=== PATIENT | male | born 1965 | race African-American/Black ===

== ENCOUNTER 2021-09-20 12:12 | Emergency (ER) | payer BC ==
--- NOTE | 2021-09-20 14:39 | RAD REPORT ---
EXAM DESCRIPTION: CT - Head Brain Wo Cont - 09/20/2021 2:30 pm CLINICAL HISTORY: paresthesias Headache, drowsiness COMPARISON: No comparisons TECHNIQUE: All CT scans are performed using dose optimization technique as appropriate and may inclu de automated exposure control or mA/KV adjustment according to patient size. FINDINGS: 11 mm area of diminished density is seen in the anterior right basal ganglia which could b e a subacute infarction.No acute hemorrhage, hydrocephalus or midline shift. No evidence of extra-axi al fluid collection. Prominent mucous retention cyst versus polyp right maxillary antrum. The paranasal sinuses and mastoi ds are otherwise clear. The calvarium is intact. IMPRESSION: 11 mm area of diminished density anterior right basal ganglia could be a subacute infarc t.
--- NOTE | 2021-09-20 14:41 | RAD REPORT ---
EXAM DESCRIPTION: RAD - Chest Single View - 09/20/2021 2:36 pm CLINICAL HISTORY: CHEST PAIN Chest pain. COMPARISON: No comparisons FINDINGS: Portable technique limits examination quality. The lungs are grossly clear. The heart is normal in size. No displaced fractures. IMPRESSION: No acute intrathoracic process suspected.
--- NOTE | 2021-09-20 15:16 | RAD REPORT ---
EXAM DESCRIPTION: MRI - Brain Wo Cont - 09/20/2021 3:06 pm CLINICAL HISTORY: left arm paresthesias COMPARISON: Head Brain Wo Cont dated 09/20/2021 TECHNIQUE: Multi-sequence, multiplanar MR imaging of the brain was performed without contrast. FINDINGS: No intracranial hemorrhage, hydrocephalus or extra-axial fluid collections. No edema or sh ift of midline structures. No findings to suspect brain mass.11-12 mm area of gliosis in the anterior right basal ganglia most compatible remote infarct. DWI is negative for acute CVA. Midline structures are normally formed. Prominent mucous retention cyst versus polyp right maxillary antrum. IMPRESSION: No acute CVA or other acute intracranial process. 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
--- NOTE | 2021-09-20 15:50 | RAD REPORT ---
EXAM DESCRIPTION: US - UPPER EXTREMITY VENOUS UNILATE - 09/20/2021 3:27 pm CLINICAL HISTORY: NUMBNESS/TINGLING Arm swelling COMPARISON: No comparisons FINDINGS: Left upper extremity venous system was interrogated with Doppler technique. Normal flow, c ompressibility and augmentation was noted. There is no DVT present. IMPRESSION: No evidence of left upper extremity deep venous thrombosis.
[2021-09-20 16:12] LABS: Absolute Lymphocytes (CBC) 2.3 K/uL (0.7-4.9); Basophils % 0.6 % (0-1.3); Hematocrit 41.3 % (39.6-49.0); Lymphocytes % 29.1 % (15.3-44.8); MPV 7.4 fL (7.6-11.3); Protime INR 1.03; RBC Red Blood Cell Count 4.79 M/uL (4.33-5.43)
[2021-09-20 16:41] LABS: ALT/SGPT 28 U/L (12-78); AST/SGOT 8 U/L (15-37); Albumin 3.7 g/dL (3.4-5.0); Alkaline Phosphatase 69 U/L (45-117); BUN Blood Urea Nitrogen 11 mg/dL (7-18); Bicarbonate 28 mmol/L (21-32); Bilirubin Direct < 0.1 mg/dL (0-0.2); Bilirubin Total 0.4 mg/dL (0.2-1.0); Glucose Level 113 mg/dL (74-106); Magnesium 2.5 mg/dL (1.8-2.4); NT PRO-BNP 42 pg/mL (<125); Potassium 3.4 mmol/L (3.5-5.1); Protein, Total 7.5 g/dL (6.4-8.2); Sodium Level 144 mmol/L (136-145); Troponin (Emerg Dept Use Only) < 0.02 ng/mL (0.0-0.045)
--- NOTE | 2021-09-20 17:24 | ER ---
Nurse's Notes [facility] Name: Luis Phillips Age: 56 yrs Sex: Male : 1965 Arrival Date: 09/20/2021 Time: 12:15 Bed 15 Private MD: Diagnosis: Peripheral Neuropathy Presentation: 09/20 12:38 Chief complaint: Patient states: back of l arm and 4th,5th digits have been numb x 5 jh6 days. no injury but increased pain when laying down at night. Coronavirus screen: Vaccine status: Patient reports receiving the 2nd dose of the covid vaccine. Ebola Screen: No symptoms or risks identified at this time. Initial Sepsis Screen: Does the patient meet any 2 criteria? No. Patient's initial sepsis screen is negative. Does the patient have a suspected source of infection? No. Patient's initial sepsis screen is negative. Risk Assessment: Do you want to hurt yourself or someone else? Patient reports no desire to harm self or others. Onset of symptoms was September 16, 2021. 12:38 Method Of Arrival: Ambulatory [facility] 12:38 Acuity: TYSON 3 6 Triage Assessment: 12:43 General: Appears in no apparent distress. Behavior is calm, cooperative. Pain: 6 Complains of pain in left arm Pain radiates to palmar aspect of distal phalanx of left little finger, palmar aspect of middle phalanx of left little finger, palmar aspect of proximal phalanx of left little finger, palmar aspect of distal phalanx of left ring finger, palmar aspect of middle phalanx of left ring finger and palmar aspect of proximal phalanx of left ring finger Quality of pain is described as. Historical: - Allergies: 12:42 Lovastatin; jh6 - PMHx: 12:42 Diabetes mellitus; Hypertensive disorder; Glaucoma; 6 - Social history:: Smoking status: Patient reports the use of cigarette tobacco products. Screenin:25 Abuse screen: Denies threats or abuse. Nutritional screening: No deficits noted. ap3 Tuberculosis screening: No symptoms or risk factors identified. Fall Risk None identified. Assessment: 14:23 General: Appears comfortable, Behavior is calm, cooperative, appropriate for age. Pain: ap3 Complains of pain in left arm. Neuro: Level of Consciousness is awake, alert, obeys commands, Oriented to person, place, time, situation, Appropriate for age Lead Sprinkler are equal bilaterally Moves all extremities. Gait is steady, Speech is normal, Facial symmetry appears normal. Neuro: Reports numbness in left arm weakness in left arm. Cardiovascular: Capillary refill < 3 seconds Patient's skin is warm and dry. Respiratory: Airway is patent Respiratory effort is even, unlabored, Respiratory pattern is regular, symmetrical. Musculoskeletal: Reports weakness in left arm numbness in left arm. 16:17 Reassessment: Patient and/or family updated on plan of care and expected duration. Pain ap3 level reassessed. Patient is alert, oriented x 3, equal unlabored respirations, skin warm/dry/pink. 17:05 Reassessment: Patient and/or family updated on plan of care and expected duration. Pain ap3 level reassessed. Patient is alert, oriented x 3, equal unlabored respirations, skin warm/dry/pink. remains at bedside\E\. Vital Signs: 12:38 BP 176 / 115; Pulse 72; Resp 17; Temp 98.6(O); Pulse Ox 100% ; Weight 124.28 kg; Height 6 6 ft. 0 in. (182.88 cm); Pain 2/10; 13:51 BP 163 / 114; Pulse 61; Resp 17; Pulse Ox 99% on R/A; mh5 17:28 BP 170 / 114; Pulse 76; Pulse Ox 98% on R/A; ap3 12:38 Body Mass Index 37.16 (124.28 kg, 182.88 cm) [facility] ED Course: 12:15 Patient arrived in ED. ds1 12:42 Triage completed. 6 12:43 Arm band placed on left wrist. [facility] 13:26 José Miguel Duque PA is PHCP. [facility] 13:26 Constantine Yeh MD is Attending Physician. [facility] 13:31 Keara Peña, MARISSA is Primary Nurse. ap3 13:50 Patient has correct armband on for positive identification. Placed in gown. Bed in low mh5 position. Call light in reach. Adult w/ patient. pet groomer on. Pulse ox on. NIBP on. 14:29 CT Head Brain wo Cont In Process Unspecified. EDMS 14:35 XRAY Chest (1 view) In Process Unspecified. EDMS 15:06 Brain Wo Cont MRI In Process Unspecified. EDMS 15:26 UPPER EXTREMITY VENOUS UNILATE In Process Unspecified. EDMS 15:53 Inserted saline lock: 20 gauge in right antecubital area, using aseptic technique. ap3 Blood collected. 17:23 Angelo Casillas MD is Referral Physician. [facility] 17:29 Nurse Practitioner and/or Physician Box Office Attendant to see patient. ap3 17:29 No provider procedures requiring assistance completed. ap3 17:39 IV discontinued, intact, bleeding controlled, No redness/swelling at site. Pressure ap3 dressing applied. Administered Medications: No medications were administered Outcome: 17:23 Discharge ordered by . jm 17:39 Discharged to home ambulatory, with family. ap3 17:39 Condition: good 17:39 Discharge instructions given to patient, family, Instructed on discharge instructions, follow up and referral plans. Demonstrated understanding of instructions, follow-up care. 17:44 Patient left the ED. ap3 Signatures: Dispatcher [employer] EDMS José Miguel Duque PA PA Kathia Andujar ds1 Raven Garces [facility] Keara Peña RN RN ap3 Keli Connors RN RN jh6
--- NOTE | 2021-09-20 17:24 | EDPHYS ---
Physician Documentation [facility] Name: Luis Phillips Age: 56 yrs Sex: Male : 1965 Arrival Date: 09/20/2021 Time: 12:15 Bed 15 Private MD: ED Physician Constantine Yeh HPI: 09/20 14:19 This 56 yrs old Black Male presents to ER via Ambulatory with complaints of L Arm jmm Numbness. 14:19 The patient or guardian complains of Numbness. Onset: The symptoms/episode jmm began/occurred gradually, 4 day(s) ago. Is a 56-year-old male with history of diabetes mellitus, hypertension the presents emerged department with complaints of numbness beginning around the left axillary region and spreading to the left forearm. Symptoms began this past Sunday. Patient denies any trauma or recent strenuous activity. Patient denies chest pain or shortness of breath. Denies unilateral weakness. Numbness mainly is in the left forearm denies any numbness to the hand or fingers. Historical: - Allergies: 12:42 Lovastatin; jh6 - PMHx: 12:42 Diabetes mellitus; Hypertensive disorder; Glaucoma; [facility] - Social history:: Smoking status: Patient reports the use of cigarette tobacco products. ROS: 14:19 Constitutional: Negative for fever, chills, and weight loss, Cardiovascular: Negative jmm for chest pain, palpitations, and edema, Respiratory: Negative for shortness of breath, cough, wheezing, and pleuritic chest pain. 14:19 Neuro: Positive for numbness. 14:19 All other systems are negative. Exam: 14:19 Constitutional: This is a well developed, well nourished patient who is awake, alert, jmm and in no acute distress. Head/Face: atraumatic. Eyes: EOMI, no conjunctival erythema appreciated ENT: Moist Mucus Membranes Neck: Trachea midline, Supple Chest/axilla: Normal chest wall appearance and motion. Cardiovascular: Regular rate and rhythm. No edema appreciated Respiratory: Normal respirations, no respiratory distress appreciated Abdomen/GI: Non distended, soft Back: Normal ROM Skin: General appearance color normal MS/ Extremity: Moves all extremities, no obvious deformities appreciated, no edema noted to the lower extremities Neuro: Awake and alert, normal gait Psych: Behavior is normal, Mood is normal, Patient is cooperative and pleasant 14:19 Musculoskeletal/extremity: Full range of motion appreciated to the left arm, left elbow, left wrist. Full radial pulse appreciated, compartments are soft. Gross sensation is intact. 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 14:19 Skin: Appearance: Color: normal in color. 14:19 Neuro: Orientation: is normal, Mentation: is normal, Memory: is normal. 14:19 Psych: Behavior/mood is pleasant, cooperative. Vital Signs: 12:38 BP 176 / 115; Pulse 72; Resp 17; Temp 98.6(O); Pulse Ox 100% ; Weight 124.28 kg; Height jh6 6 ft. 0 in. (182.88 cm); Pain 2/10; 13:51 BP 163 / 114; Pulse 61; Resp 17; Pulse Ox 99% on R/A; mh5 17:28 BP 170 / 114; Pulse 76; Pulse Ox 98% on R/A; ap3 12:38 Body Mass Index 37.16 (124.28 kg, 182.88 cm) jh6 MDM: 14:19 Patient medically screened. [facility] 17:22 Data reviewed: vital signs, nurses notes. Counseling: I had a detailed discussion with amparo the patient and/or guardian regarding: the historical points, exam findings, and any diagnostic results supporting the discharge/admit diagnosis, lab results, radiology results, the need for outpatient follow up, to return to the emergency department if symptoms worsen or persist or if there are any questions or concerns that arise at home. ED course: Labs and imaging studies are unremarkable. Patient advised to follow-up with neurology for further evaluation. Most likely a peripheral neuropathy. Patient given signs and symptoms of CVA and otherwise given strict return precautions. Patient understood agrees plan of care.. 09/20 14:20 Order name: Basic Metabolic Panel [facility] 09/20 14:20 Order name: CBC with Diff [facility] 09/20 14:20 Order name: LFT's; Complete Time: 16:42 [facility] 09/20 14:20 Order name: Magnesium; Complete Time: 16:42 [facility] 09/20 14:20 Order name: NT PRO-BNP; Complete Time: 16:42 [facility] 09/20 14:20 Order name: PT-INR; Complete Time: 16:20 [facility] 09/20 14:20 Order name: Troponin (emerg Dept Use Only); Complete Time: 16:42 [facility] 09/20 14:20 Order name: XRAY Chest (1 view); Complete Time: 14:42 [facility] 09/20 14:20 Order name: CT Head Brain wo Cont; Complete Time: 14:40 [facility] 09/20 14:20 Order name: Brain Wo Cont MRI; Complete Time: 15:37 [facility] 09/20 14:20 Order name: Basic Metabolic Panel; Complete Time: 16:42 [facility] 09/20 14:20 Order name: CBC with Automated Diff; Complete Time: 16:26 [facility] 09/20 14:45 Order name: UPPER EXTREMITY VENOUS UNILATE; Complete Time: 15:57 [facility] 09/20 14:20 Order name: EKG; Complete Time: 14:21 [facility] 09/20 14:20 Order name: Cardiac monitoring; Complete Time: 15:52 [facility] 09/20 14:20 Order name: EKG - Nurse/Tech; Complete Time: 16:39 [facility] 09/20 14:20 Order name: IV Saline Lock; Complete Time: 15:53 [facility] 09/20 14:20 Order name: Labs collected and sent; Complete Time: 15:53 [facility] 09/20 14:20 Order name: O2 Per Protocol; Complete Time: 14:25 [facility] 09/20 14:20 Order name: O2 Sat Monitoring; Complete Time: 14:25 [facility] Administered Medications: No medications were administered Disposition: 17:22 Chart complete. [facility] 17:45 Co-signature as Attending Physician, Constantine Yeh MD I agree with the assessment and rn plan of care. Attestation: The patient's history, exam findings, diagnostics, and a summary of any interventions or procedures was reviewed in detail with José Miguel STILES. Disposition Summary: 09/20/21 17:23 Discharge Ordered Location: Home [facility] Condition: Stable [facility] Diagnosis - Peripheral Neuropathy [facility] Followup: [facility] - With: Angelo Casillas MD - When: 2 - 3 days - Reason: Recheck today's complaints, Continuance of care, Re-evaluation by your physician Discharge Instructions: - Discharge Summary Sheet jmm - Peripheral Neuropathy [facility] Forms: - Medication Reconciliation Form [facility] - Thank You Letter jm - Antibiotic Education m - Prescription Opioid Use [facility] Signatures: Dispatcher [employer] EDMS MickaJosé Miguel holden PA PA jmm Nieto, Roman, MD MD rn HasKeli trejo RN RN jh6 Corrections: (The following items were deleted from the chart) 14:45 14:21 Extremity Venous [email or web address] ordered. EDMS EDMS
[2021-09-20 18:10] VITALS: TEMP 98.6
[2021-09-20 18:13] VITALS: BP 170/114; O2SAT 98
--- NOTE | 2021-09-21 07:49 | EKG ---
Test Date: 2021-09-20 Test Time: 16:38:04 Obstetrics Gyn Physician: ALP MEASUREMENT RESULTS: Intervals: Rate: 72 TX: 176 QRSD: 92 QT: 422 QTc: 462 [place]: P: 73 TX: 176 QRS: 17 T: 36 INTERPRETIVE STATEMENTS: Normal sinus rhythm Normal ECG No previous ECG available for comparison Electronically Signed On 09-21-21 07:48:06 SYSTEM SOFTWARE PROGRAMMER by Derrick Randle
== END 2021-09-20 17:44 | disposition home or self-care (01) ==
LOC: ER 12:12
DX: E11.42 Type 2 diabetes mellitus with diabetic polyneuropathy (principal); I10 Essential (primary) hypertension; Z72.0 Tobacco use
CPT/HCPCS: 36415; 70450; 70551; 71045; 80048; 80076; 83735; 83880; 84484; 85025; 85610; 93005; 93971; 99284

== ENCOUNTER 2022-03-01 12:06 | Emergency (ER) | payer OTHER, BC ==
[2022-03-01 12:53] LABS: Protime INR 0.98
--- OUTSIDE RECORDS SUMMARY | 2022-03-01 12:55 | XMS REPORT | Continuity of Care Document ---
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 BRIA Attending Clinician Unavailable Payers Payer Name Policy Type Policy Number Effective Date Expiration Date S ource Problems Condition Condition Condition Status Onset Resolution Last Treating Co mments Source Name Details Category Date Date Treatment Clinician Date Essential Essential Disease Active 2014-10 Uni vers hypertensi hypertensi 10-16 it y of on on 00:00: [address] Hyperlipid Hyperlipid Disease Active 2014-10 U nivers emia LDL emia LDL 10-16 ity of goal < 100 [place] [facility] Type 2 Type 2 Disease Active 2014-10 Univers diabetes diabetes 10-16 ity of mellitus mellitus 00:00: [address] Allergies, Adverse Reactions, Alerts Allergy Allergy Status Severity Reaction(s) Onset Inactive Treating Comm ents Source Name Type Date Date Clinician Latex Propensi Active Rash Univers ty to 4-11 ity of adverse 00:00: [place] reaction [address] [place] [address] LATEX DRUG Active Low Rash Univers INGREDI 4-11 ity of 00:00: [address] NO KNOWN Drug Active Univers ALLERGIE Class ity of S [facility] Social History Social Habit Start Date Stop Date Quantity Comments Source Exposure to Not sure University SARS-CoV-2 [facility] (event) [place] Alcohol intake 2022-01-16 2022-01-16 Current drinker Unive rsity of 00:00:00 00:00:00 of alcohol [place] [facility] (finding) Branch History of 2014-08-22 Smoker University of tobacco use 00:00:00 [facility] Sex Ass[birth year] At [birth year] Universit y of 00:00:00 00:00:00 [facility] Smoking Status Start Date Stop Date Source [facility] Medications Ordered Filled Start Stop Current Ordering Indication Dosage Frequency Signature Comments Components Source Medication Medication Date Date Medication? Clinician (SIG) Name Name NaCl 0.9% 2021- No 1000mL at 999 Uni vers (NS) bolus 01-17-12 mL/hr, ity of infusion 00:30: 01:00 1,000 mL, Charlie as 1,000 mL 00 :00 IV Medical Infusion, Branch ONCE, 1 dose, On Sun01/16/22 at 1930, SEBAS insulin 2021- No 8U 8 Units, Unive rs regular 01-17 Slow IV ity of human 00:30: 23:35 Push, [place] (HUMULIN R) 00 :00 ONCE, 1 Medic al injection 8 dose, On Bran ch Units Sun01/16/22 at 1930, STAT semaglutide Yes .5mg inject 0.5 Univers (OZEMPIC) 4-11 mg under ity of 0.25 mg or 20:17: the skin Charlie as 0.5 mg(2 13 weekly. Medical mg/1.5 mL) Branch PnIj atorvastati Yes 40mg Take 40 mg Univers n 40 mg 4-11 by mouth ity of tablet 20:17: at [place] [address] bedtime. Medical Branch chlorthalid Yes 25mg Take 25 mg Univers one 25 mg 4-11 by mouth ity of tablet 20:17: daily. [address] Branch vitamin Yes 1000ug Take 1,000 Un courtney B-12 1,000 4-11 mcg by ity of mcg tablet 20:17: mouth [place] [address] daily. Medical Branch losartan 50 Yes 50mg Take 50 mg Univers mg tablet 4-11 by mouth ity of 20:17: daily. [place] [address] Medical Branch KCL 10 mEq Yes 10meq Take 10 Uni vers tablet 4-11 mEq by ity of 20:17: mouth [place] [address] daily. Medical Branch sildenafiL Yes Take by Uni vers 100 mg -11 mouth as ity of tablet 20:17: needed. [place] 13 Medical Branch multivitami 0 Yes 15mL Take 15 mL Univers n (CENTRUM) 4-11 by mouth ity of solution 17:22: daily. [place] 22 Medical Branch sitaGLIPtin 0 2021- No 1{tbl} Take 1 U nivers -metformin 01-16 tablet by ity of (JANUMET 17:22: 00:00 mouth 2 [place] XR) 22 :00 (two) Medical 50-1,000 mg times Branch per tablet daily. GLIPIZIDE 2021- No Take by Uni vers ORAL -08 11-11 mouth. ity of 17:22: 00:00 [place] 07 :00 Medical Branch efinaconazo 2021- No Apply to Univers le (JUBLIA) 01-1611 area(s). ity of 10 % 17:21: 00:00 [place] topical 57 :00 Medical solution Branch doxazosin 2021- No 8mg Take 8 mg Un courtney (CARDURA) 8 01-1611 by mouth ity of mg tablet 17:21: 00:00 daily. [place] 51 :00 Medical Branch lovastatin 0 Yes 20mg Take 20 mg U nivers 20 mg -11 by mouth ity of tablet 17:20: at [place] [address] bedtime. Medical Branch pioglitazon 0 Yes 15mg Take 15 mg Univers e 15 mg -11 by mouth ity of tablet 17:20: daily. [place] 25 Medical Branch amLODIPine 0 Yes 10mg Take 10 mg U nivers (NORVASC) 4-11 by mouth ity of 10 mg 17:15: daily. [facility] 55 Medical Branch aspirin 81 0 Yes 81mg Take 81 mg U nivers mg EC 4-11 by mouth ity of tablet 17:15: daily. [place] 55 Medical Branch canaglifloz 0 2021- No 300mg Take 300 Univers in - 04-11 mg by ity of (INVOKANA) 17:14: 00:00 mouth. [place] 300 mg 56 :00 Medical tablet Branch ondansetron 0 Yes [id number] 4mg Take 1 Univers 4 mg 4-11 tablet by ity of disintegrat 00:00: mouth [place] ing tablet 00 every 8 Medica l (eight) Branch hours as needed for Nausea and Vomiting (N/V). cyclobenzap 5mg Take 1 Uni vers rine 5 mg 5-17 -11 tablet by ity of tablet 00:00: 00:00 mouth 3 [place] 00 :00 (three) Medical times Branch daily. Vital Signs Vital Name Observation Time Observation Value Comments Source Systolic blood 2022-01-17 01:14:48 128 mm[Hg] Univer sity of [facility] Diastolic blood 2022-01-17 01:14:48 87 mm[Hg] [facility] Tylere [facility] Heart rate 2022-01-17 01:14:48 77 /min [facility] Respiratory rate 2022-01-17 01:14:48 16 /min [facility] Oxygen saturation in 2022-01-17 01:14:48 98 /min [facility] Arterial blood by [facility] Pulse oximetry [place] Body weight 2022-01-16 22:13:00 113.671 kg [facility] BMI 2022-01-16 22:13:00 33.06 kg/m2 [facility] Procedures Procedure Date / Time Performed Performing Clinician Sourc e POCT GLUCOSE 2022-01-17 00:11:00 Eamon Frasre [facility] (AUTOMATED) [facility] POCT GLUCOSE 2022-01-16 23:18:00 Eamon Fraser [facility] (AUTOMATED) [facility] COMP. METABOLIC PANEL 2022-01-16 23:03:[address] [facility] ([id number]) [facility] CBC WITH DIFF 2022-01-16 23:03:00 Eamon Fraser [facility] URINALYSIS 2022-01-16 23:03:00 Eamon Fraser [facility] NOTICE OF PRIVACY 2022-01-16 22:03:46 Doctor Unassigned, No Univ [facility] Name Medical [place] Encounters Start End Encounter Admission Attending Care Care Encounter Source Date/Time Date/Time Type Type Clinicians Facility Department ID 2022-01-16 2022-01-16 Emergency [facility] [id number] Univers 17:23:00 21:06:00 Eamon BLANCO [id number] i ty [facility] [id number] [facility] [id number] [place] [id number] Branch 2022-01-16 2022-01-16 Emergency [facility] [id number] Univers 17:23:00 21:06:00 EAMON tksalena [facility] Results Test Description Test Time Test Comments Results Result Comments Source POCT GLUCOSE (AUTOMATED) 2022-01-17 00:13:56 Test Item Value Reference Range Interpretation Comme nts POCT GLU (test code = 6691245532) 222 mg/dL 70-110 H Lab Interpretation (test code = 67039-9) [facility]normal [facility] ([id number])2022-01-16 23:25:31 Test Item Value Reference Range Interpretation Comments NA (test code = 135 mmol/L 135-145 9748292686) K (test code = 3.6 mmol/L 3.5-5.0 0621057538) CL (test code = 94 mmol/L 98-108 L 3230503828) CO2 TOTAL (test code = 30 mmol/L 23-31 9721581853) AGAP (test code = 2-16 9485971842) BUN (test code = 23 mg/dL 7-23 7091642947) GLUCOSE (test code = 371 mg/dL 70-110 H 4825336010) CREATININE (test code = 1.56 mg/dL 0.60-1.25 H 3300876580) TOTAL BILI (test code = 0.8 mg/dL 0.1-1.4 3246237853) CALCIUM (test code = 9.8 mg/dL 8.6-10.6 9178142620) T PROTEIN (test code = 7.3 g/dL 6.3-8.2 3508961501) ALBUMIN (test code = 4.6 g/dL 3.5-5.0 6016764590) ALK PHOS (test code = 79 U/L 34-122 9572883273) ALTv (test code = 18 U/L 5-50 1742-6) AST(SGOT) (test code = 18 U/L 13-40 0063035285) eGFR (test code = mL/min/1.73m2 1740240380) REI (test code = REI) Association of Glomerular Filtration Rate (GFR) and Staging of Kidney Disease* + --+ --+ ------+| GFR (mL/min/1.73 m2) ?| With Kidney Damage ?| ?Without Kidney Damage+ --------+ --------+ +| ?>90 ?| ?Stage one ?| ? Normal ?+ ---+ ---+ -------+| ?60-89 ?| ?Stage two ?| ? Decreased GFR ? + --+ --+ ------+| ?30-59 ?| ?Stage three ?| ? Stage three ? + --+ --+ ------+| ?15-29 ?| ?Stage four ? | ? Stage four ?+ ---+ ---+ -------+| ?<15 (or dialysis) ? ?| ?Stage five ? | ? Stage five ?+ ---+ ---+ -------+ *Each stage assumes the associated GFR level has been in effect for at least three months. ?Stages 1 to 5, with or without kidney disease, indicate chronic kidney disease. Notes: Determination of stages one and two (with eGFR >59mL/min/1.73 m2) requires estimation of kidney damage for at least three months as defined by structural or functional abnormalities of the kidney, manifested by either:Pathological abnormalities or Markers of kidney damage (including abnormalities in the composition of the blood or urine or abnormalities in imaging tests). Lab Interpretation Abnormal (test code = 85505-2) [facility] [place] [facility]2022-01-16 23:20:42 Test Item Value Reference Range Interpretation Comments POCT GLU (test code = 7261864000) 374 mg/dL 70-110 H Lab Interpretation (test code = Abnormal 57751-2) [facility] WITH [id number] 23:13:47 Test Item Value Reference Range Interpretation Comments WBC (test code = See_Comment [Automated 6690-2) message] The sy stem which generated this result transmitted reference range : 4.20 - 10.70 10*3/?L. The reference range was not used to interpret this result as normal/abnormal . RBC (test code = See_Comment [Automated 789-8) message] The sy stem which generated this result transmitted reference range : 4.26 - 5.52 10*6/?L. The reference range was not used to interpret this result as normal/abnormal . HGB (test code = 13.4 g/dL 12.2-16.4 718-7) HCT (test code = 38.7 % 38.4-49.3 4544-3) MCV (test code = 84.1 fL 81.7-95.6 787-2) MCH (test code = 29.1 pg 26.1-32.7 785-6) MCHC (test code = 34.6 g/dL 31.2-35.0 786-4) RDW-SD (test code = 37.2 fL 38.5-51.6 L 86439-2) RDW-CV (test code = 12.2 % 12.1-15.4 788-0) PLT (test code = See_Comment [Automated 777-3) message] The sy stem which generated this result transmitted reference range : 150 - 328 10*3/ ?L. The reference r shelby was not used to interpret this result as normal/abnormal . MPV (test code = 9.6 fL 9.8-13.0 L 25241-2) NRBC/100 WBC (test See_Comment [Automat ed code = 9525468442) message] The system which generated this result transmitted reference range : 0.0 - 10.0 /100 WBCs. The refer ence range was not u sed to interpret th is result as normal/abnormal . NRBC x10^3 (test code <0.01 See_Comment [Auto mated = 4553486625) message] The s ystem which generated this result transmitted reference range : 10*3/?L. The reference range was not used to interpret this result as normal/abnormal . GRAN MAT (NEUT) % 66.7 % (test code = 770-8) IMM GRAN % (test code 0.20 % = 8496208722) LYMPH % (test code = 24.6 % 736-9) MONO % (test code = 7.4 % 5905-5) EOS % (test code = 0.8 % 713-8) BASO % (test code = 0.3 % 706-2) GRAN MAT x10^3(ANC) 6.90 10*3/uL 1.99-6.95 (test code = 0990479775) IMM GRAN x10^3 (test <0.03 0.00-0.06 code = 3450356631) LYMPH x10^3 (test code 2.54 10*3/uL 1.09-3.23 = 731-0) MONO x10^3 (test code 0.77 10*3/uL 0.36-1.02 = 742-7) EOS x10^3 (test code = 0.08 10*3/uL 0.06-0.53 711-2) BASO x10^3 (test code 0.03 10*3/uL 0.01-0.09 = 704-7) Lab Interpretation Abnormal (test code = 61961-1) [facility]"
[2022-03-01 13:01] LABS: Hematocrit 42.6 % (39.6-49.0); RBC Red Blood Cell Count 4.94 M/uL (4.33-5.43)
[2022-03-01 13:02] LABS: Absolute Lymphocytes (CBC) 1.9 K/uL (0.7-4.9); Lymphocytes % 28.2 % (15.3-44.8); MPV 7.3 fL (7.6-11.3)
[2022-03-01 13:04] LABS: Magnesium 2.3 mg/dL (1.8-2.4); Potassium 3.1 mmol/L (3.5-5.1); Troponin High Sensitivity 7.3 pg/mL (<58.9)
--- NOTE | 2022-03-01 13:16 | RAD REPORT ---
EXAM DESCRIPTION: CT - CTHCSPWOC - 03/01/2022 1:08 pm CLINICAL HISTORY: Trauma, head and neck injury. Syncope, Trauma COMPARISON: Head Brain Wo Cont dated 09/20/2021 TECHNIQUE: Axial 5 mm thick images of the head were obtained. Axial 2 mm thick images of the cervical spine were obtained with sagittal and coronal reconstruction images generated and reviewed. All CT scans are performed using dose optimization technique as appropriate and may include automated exposure control or mA/KV adjustment according to patient size. FINDINGS: CT HEAD WITHOUT CONTRAST: No acute hemorrhage, hydrocephalus or extra-axial collection is identified.No areas of brain edema or midline shift. Prominent polypoid mucosal thickening right maxillary antrum. The paranasal sinuses and mastoids are otherwise clear.The calvarium is intact. CT CERVICAL SPINE WITHOUT CONTRAST: No fracture or subluxation.Mild midcervical degenerative changes.No prevertebral soft tissues swellin g is identified. IMPRESSION: No acute intracranial or cervical spine findings.
[2022-03-01] MEDS ORDERED: POTASSIUM CL SA 10 MEQ TAB PO ONE (13:55)
[2022-03-01] MEDS ORDERED: Ringers Lactate 1,000 ML IV ONE (13:55)
--- NOTE | 2022-03-01 14:03 | RAD REPORT ---
EXAM DESCRIPTION: RAD - Chest Single View - 03/01/2022 1:57 pm CLINICAL HISTORY: syncope Chest pain. COMPARISON: Chest Single View dated 09/20/2021 FINDINGS: Portable technique limits examination quality. The lungs are grossly clear. The heart is normal in size. No displaced fractures. IMPRESSION: No acute intrathoracic process suspected.
--- NOTE | 2022-03-01 14:14 | ER ---
Nurse's Notes [facility] Name: Luis Phillips Age: 56 yrs Sex: Male : 1965 Arrival Date: 03/01/2022 Time: 12:09 Bed 13 Private MD: Diagnosis: Dehydration;Heat syncope;Hypokalemia;Chronic kidney disease, stage 3 (moderate) Presentation: 03/01 12:17 Chief complaint: Spouse and/or significant other states: he fell and hit his head iw Sunday , states he passed out fell hit head on ground, vomited later, states he was out in the heat, now he is still having headaches and feels like his vision is off. Care prior to arrival: None. Mechanism of Injury: Fall from standing position. Trauma event details: Injury occurred in the [facility]. 12:17 Acuity: TYSON 2 iw 12:17 Method Of Arrival: Ambulatory iw 12:23 Coronavirus screen: At this time, the client does not indicate any symptoms associated iw with coronavirus-19. Ebola Screen: Patient negative for fever greater than or equal to 101.5 degrees Fahrenheit, and additional compatible Ebola Virus Disease symptoms Patient denies exposure to infectious person. Patient denies travel to an Ebola-affected area in the 21 days before illness onset. No symptoms or risks identified at this time. Initial Sepsis Screen: Does the patient meet any 2 criteria? No. Patient's initial sepsis screen is negative. Does the patient have a suspected source of infection? No. Patient's initial sepsis screen is negative. Risk Assessment: Do you want to hurt yourself or someone else? Patient reports no desire to harm self or others. Onset of symptoms was February 27, 2022. Historical: - Allergies: 12:19 Latex, Natural Rubber; iw - Home Meds: 12:22 amlodipine oral [Active]; clopidogrel oral [Active]; losartan oral [Active]; iw - PMHx: 12:19 diabetes mellitus; Glaucoma; Hypertensive disorder; iw Screenin:23 Abuse screen: Denies threats or abuse. Denies injuries from another. Tuberculosis iw screening: No symptoms or risk factors identified. 15:31 Nutritional screening: No deficits noted. Fall Risk Fall in past 12 months (25 points). tw2 Primary Survey: 12:20 NO uncontrolled hemorrhage observed. A: The client is awake and alert. The airway is iw patent. The client is alert. Airway:. Breathing/Chest: Spontaneous respiratory effort, equal unlabored respirations, breath sounds clear bilaterally, regular pattern, symmetrical chest rise and fall. Respiratory effort: spontaneous. Circulation: Skin color: pink. Disability Client is alert. Exposure/Environment: All clothing and personal items were removed. Forensic evidence collection is not deemed to be indicated at this time. Items placed in patient belonging bag. Assessment: 12:34 General: Appears in no apparent distress. Behavior is calm, cooperative. Pain: iw Complains of pain in head. Neuro: Rodas Agitation-Sedation Scale (RASS): Level of Consciousness is awake, alert, obeys commands, Oriented to person, place, time, situation. 14:27 Reassessment: Patient appears in no apparent distress at this time. Patient and/or tw2 family updated on plan of care and expected duration. Pain level reassessed. Patient is alert, oriented x 3, equal unlabored respirations, skin warm/dry/pink. 15:32 Reassessment: Patient appears in no apparent distress at this time. Patient and/or tw2 family updated on plan of care and expected duration. Pain level reassessed. Patient is alert, oriented x 3, equal unlabored respirations, skin warm/dry/pink. Patient states feeling better. Vital Signs: 12:21 BP 123 / 92; Pulse 75; Resp 16; Temp 97.7; Pulse Ox 100% on R/A; iw 14:26 BP 126 / 84; Pulse 70; Resp 20; Pulse Ox 100% on R/A; tw2 [place] Coma Score: 12:21 Eye Response: spontaneous(4). Verbal Response: oriented(5). Motor Response: obeys iw commands(6). Total: 15. 12:30 Eye Response: spontaneous(4). Verbal Response: oriented(5). Motor Response: obeys jr8 commands(6). Total: 15. Trauma Score (Adult): 12:21 Eye Response: spontaneous(1); Verbal Response: oriented(1); Motor Response: obeys iw commands(2); Systolic BP: > 89 mm Hg(4); Respiratory Rate: 10 to 29 per min(4); [place] Score: 15; Trauma Score: 12 ED Course: 12:09 Patient arrived in ED. mr 12:13 Obinna Quevedo PA is PHCP. jr8 12:13 Constantine Yeh MD is Attending Physician. jr8 12:19 Triage completed. iw 12:21 Patient maintains SpO2 saturation greater than 95% on room air. iw 12:21 Arm band placed on. iw 12:33 Initial lab(s) drawn, by me, sent to lab. Inserted saline lock: 20 gauge in right iw antecubital area, using aseptic technique. Blood collected. 13:10 CT Head C Spine In Process Unspecified. EDMS 13:45 Bed in low position. Call light in reach. Side rails up X 1. Door closed. Noise mh5 minimized. 13:59 XRAY Chest (1 view) In Process Unspecified. EDMS 14:14 Naila Evans MD is Referral Physician. jr8 14:20 Reny Badillo, RN is Primary Nurse. tw2 14:25 Awaiting: completion of IV fluids PRIOR to discharge. tw2 15:31 No provider procedures requiring assistance completed. tw2 15:32 IV discontinued, intact, bleeding controlled, No redness/swelling at site. Pressure tw2 dressing applied. Administered Medications: 13:58 Drug: Ringers - Lactated Ringers Solution 1000 ml Route: IV; Rate: bolus; Site: right iw antecubital; 15:30 Follow up: Response: No adverse reaction; IV Status: Completed infusion; IV Intake: tw2 1000ml 13:58 Drug: Potassium Chloride 20 mEq Route: PO; iw 15:30 Follow up: Response: No adverse reaction tw2 Intake: 15:30 IV: 1000ml; Total: 1000ml. tw2 Outcome: 14:14 Discharge ordered by . jr8 15:32 Discharged to home ambulatory, with significant other. tw2 15:32 Condition: stable 15:32 Discharge instructions given to patient, significant other, Instructed on discharge instructions, follow up and referral plans. Demonstrated understanding of instructions, follow-up care. 15:33 Patient left the ED. tw2 Signatures: Dispatcher [employer] NILSON DemarcoMargarita Irene, RN RN Obinna Quevedo PA PA jr8 Reny Badillo RN RN 2 Raven Garces [facility]
--- NOTE | 2022-03-01 14:14 | EDPHYS ---
Physician Documentation [facility] Name: Luis Phillips Age: 56 yrs Sex: Male : 1965 Arrival Date: 03/01/2022 Time: 12:09 Bed 13 Private MD: ED Physician Constantine Yeh HPI: 03/01 12:30 This 56 yrs old Black Male presents to ER via Ambulatory with complaints of Head Injury jr8 With LOC-Adult, Fall Injury. 12:30 Onset: The symptoms/episode began/occurred acutely, 2 day(s) ago. Associated signs and jr8 symptoms: Loss of consciousness: This patient experience a loss of consciousness, Pertinent positives: dazed, headache, nausea, neck pain, vomiting, blurred vision. Severity of symptoms: At their worst the symptoms were moderate, in the emergency department the symptoms have improved. The patient has not experienced similar symptoms in the past. The patient has not recently seen a physician. This is a 56-year-old male patient that was out in the heat on Sunday and started to feel dazed and lightheaded. Patient stated that he had a syncopal episode. In the course of about an hour while he was with his friend had 2 more syncopal episodes hitting his head. Since then has had continued blurred vision, headache, nausea, and sensitivity to light. Went to his primary care physician this morning who referred him to the emergency room for further evaluation. Patient denies any recent change in medication or taking too much of his medication. Historical: - Allergies: 12:19 Latex, Natural Rubber; iw - Home Meds: 12:22 amlodipine oral [Active]; clopidogrel oral [Active]; losartan oral [Active]; iw - PMHx: 12:19 diabetes mellitus; Glaucoma; Hypertensive disorder; iw ROS: 12:30 Constitutional: Negative for fever, chills, and weight loss. jr8 12:30 Cardiovascular: Negative for chest pain, palpitations, and edema, Respiratory: Negative for shortness of breath, cough, wheezing, and pleuritic chest pain, Abdomen/GI: Negative for abdominal pain, nausea, vomiting, diarrhea, and constipation, MS/Extremity: Negative for injury and deformity, Skin: Negative for injury, rash, and discoloration. 12:30 Eyes: Positive for blurry vision. 12:30 Neck: Positive for pain with movement, pain at rest, bony tenderness. 12:30 Back: Positive for pain with movement, Negative for radiated pain. 12:30 Neuro: Positive for dizziness, headache, loss of consciousness, syncope, visual changes. Exam: 12:30 Constitutional: This is a well developed, well nourished patient who is awake, alert, jr8 and in no acute distress. 12:30 Eyes: Pupils equal round and reactive to light, extra-ocular motions intact. Lids and lashes normal. Conjunctiva and sclera are non-icteric and not injected. Cornea within normal limits. Periorbital areas with no swelling, redness, or edema. ENT: Nares patent. No nasal discharge, no septal abnormalities noted. Tympanic membranes are normal and external auditory canals are clear. Oropharynx with no redness, swelling, or masses, exudates, or evidence of obstruction, uvula midline. Mucous membranes moist. Chest/axilla: Normal chest wall appearance and motion. Nontender with no deformity. No lesions are appreciated. Cardiovascular: Regular rate and rhythm with a normal S1 and S2. No gallops, murmurs, or rubs. Normal PMI, no JVD. No pulse deficits. Respiratory: Lungs have equal breath sounds bilaterally, clear to auscultation and percussion. No rales, rhonchi or wheezes noted. No increased work of breathing, no retractions or nasal flaring. Abdomen/GI: Soft, non-tender, with normal bowel sounds. No distension or tympany. No guarding or rebound. No evidence of tenderness throughout. Skin: Warm, dry with normal turgor. Normal color with no rashes, no lesions, and no evidence of cellulitis. MS/ Extremity: Pulses equal, no cyanosis. Neurovascular intact. Full, normal range of motion. Neuro: Awake and alert, GCS 15, oriented to person, place, time, and situation. Cranial nerves II-XII grossly intact. Motor strength 5/5 in all extremities. Sensory grossly intact. Cerebellar exam normal. Normal gait. 12:30 Head/face: Noted is tenderness, that is mild, of the right occipital area. 12:30 Neck: C-spine: vertebral tenderness, that is mild, appreciated at C4 and C5, Thyroid: appears normal, Trachea: is midline with no obvious abnormalities, ROM/movement: is normal, is supple, no range of motions limitations, no meningismus, no nuchal rigidity, negative Brudzinski's sign, negative Kernig's sign, pain, that is mild, with rotation to the left, with rotation to the right. 12:30 Back: pain, that is mild, of the right low back, ROM is normal, normal spinal alignment noted, CVA tenderness, is absent, vertebral tenderness, is not appreciated. Vital Signs: 12:21 BP 123 / 92; Pulse 75; Resp 16; Temp 97.7; Pulse Ox 100% on R/A; iw 14:26 BP 126 / 84; Pulse 70; Resp 20; Pulse Ox 100% on R/A; tw2 Lidia Coma Score: 12:21 Eye Response: spontaneous(4). Verbal Response: oriented(5). Motor Response: obeys iw commands(6). Total: 15. 12:30 Eye Response: spontaneous(4). Verbal Response: oriented(5). Motor Response: obeys jr8 commands(6). Total: 15. Trauma Score (Adult): 12:21 Eye Response: spontaneous(1); Verbal Response: oriented(1); Motor Response: obeys iw commands(2); Systolic BP: > 89 mm Hg(4); Respiratory Rate: 10 to 29 per min(4); Horseheads Score: 15; Trauma Score: 12 MDM: 12:27 Patient medically screened. [facility] 14:11 Data reviewed: vital signs, nurses notes, lab test result(s), EKG, radiologic studies, jr CT scan, plain films. Data interpreted: Pulse oximetry: on room air is 100 %. Interpretation: normal. Counseling: I had a detailed discussion with the patient and/or guardian regarding: the historical points, exam findings, and any diagnostic results supporting the discharge/admit diagnosis, lab results, radiology results, the need for outpatient follow up, a family practitioner, to return to the emergency department if symptoms worsen or persist or if there are any questions or concerns that arise at home. ED course: Hydrated patient and replaced potassium. Patient otherwise hemodynamically stable. No acute cervical or intracranial findings noted. This was all discussed with patient. Needs to f/u with renal for CKD. If he were to have worsening of symptoms to come back to ED. 03/01 12:26 Order name: Basic Metabolic Panel; Complete Time: 13:26 jr8 05/25 12:26 Order name: CBC with Diff; Complete Time: 13:03/01 12:26 Order name: Magnesium; Complete Time: 13:03/01 12:26 Order name: NT PRO-BNP; Complete Time: 13:03/01 12:26 Order name: PT-INR; Complete Time: 13:26 03/01 12:26 Order name: Troponin HS; Complete Time: 13:03/01 12:26 Order name: XRAY Chest (1 view); Complete Time: 14:11 03/01 12:26 Order name: EKG; Complete Time: 12:27 03/01 12:26 Order name: Cardiac monitoring; Complete Time: 14:33 03/01 12:26 Order name: EKG - Nurse/Tech; Complete Time: 12:48 03/01 12:26 Order name: IV Saline Lock; Complete Time: 12:48 03/01 12:26 Order name: CT Head C Spine; Complete Time: 13:03/01 12:26 Order name: Labs collected and sent; Complete Time: 12:48 03/01 12:26 Order name: O2 Per Protocol; Complete Time: 14:03/01 12:26 Order name: O2 Sat Monitoring; Complete Time: 14:33 Administered Medications: 13:58 Drug: Ringers - Lactated Ringers Solution 1000 ml Route: IV; Rate: bolus; Site: right iw antecubital; 15:30 Follow up: Response: No adverse reaction; IV Status: Completed infusion; IV Intake: tw2 1000ml 13:58 Drug: Potassium Chloride 20 mEq Route: PO; iw 15:30 Follow up: Response: No adverse reaction tw2 Disposition: 16:10 Co-signature as Attending Physician, Constantine Yeh MD. rn Disposition Summary: 03/01/22 14:14 Discharge Ordered Location: Home jr8 Problem: new jr8 Symptoms: have improved jr8 Condition: Stable jr8 Diagnosis - Dehydration jr8 - Heat syncope jr8 - Hypokalemia jr8 - Chronic kidney disease, stage 3 (moderate) jr8 Followup: jr8 - With: Naila Evans MD - When: 1 week - Reason: Recheck today's complaints, Continuance of care, Re-evaluation by your physician Discharge Instructions: - Discharge Summary Sheet jr8 - Dehydration, Adult jr8 - Chronic Kidney Disease, Adult jr8 - Hypokalemia jr8 Forms: - Medication Reconciliation Form jr8 - Thank You Letter jr8 - Antibiotic Education jr8 - Prescription Opioid Use jr8 Signatures: Dispatcher [employer] Sue Hamilton RN RN Constantine Yeh MD MD rn Roszak, Josh, PA PA jr8 Reny Badillo RN tw2
[2022-03-01 15:51] VITALS: TEMP 97.7; O2SAT 100
[2022-03-01 15:52] VITALS: BP 126/84
--- NOTE | 2022-03-02 07:55 | EKG ---
Test Date: 2022-03-01 Test Time: 12:33:44 [place]: JOSH MEASUREMENT RESULTS: Intervals: Rate: 69 RI: 166 QRSD: 84 QT: 384 QTc: 411 [place]: P: 71 RI: 166 QRS: 20 T: 7 INTERPRETIVE STATEMENTS: Normal sinus rhythm Nonspecific T wave abnormality Abnormal ECG Compared to ECG 09/20/2021 16:38:04 T-wave abnormality now present Electronically Signed On 03-02-22 07:52:18 CDT by Derrick Randle
== END 2022-03-01 15:33 | disposition home or self-care (01) ==
LOC: ER 12:06
DX: T67.1XXA Heat syncope, initial encounter (principal); E86.0 Dehydration; E87.6 Hypokalemia; E11.22 Type 2 diabetes mellitus with diabetic chronic kidney disease; I12.9 Hypertensive chronic kidney disease with stage 1 through stage 4 chronic kidney disease, or unspecified chronic kidney disease; N18.30 Chronic kidney disease, stage 3 unspecified; Z91.040 Latex allergy status; Z91.048 Other nonmedicinal substance allergy status
CPT/HCPCS: 96365; 93005; 85025; 80048; 36415; 83735; 85610; 84484; 83880; 70450; 72125; 71045; 99284; 96366; J7120